=== PATIENT | female | born 2000 | race Caucasian/White ===

== ENCOUNTER 2021-04-21 09:45 | Emergency (ER) | payer BC, SELFPAY ==
[2021-04-21 10:05] VITALS: BP 156/85; PULSE 112; RESP 18; TEMP 36.4; O2SAT 99; BMI 23.9
--- NOTE | 2021-04-21 10:32 | ED_ITS ---
HPI - Abdominal Pain General Chief Complaint: Abdominal Pain Stated Complaint: abd pain, blood in stool Time Seen by Provider: 04/21/21 10:21 Source: patient Mode of arrival: ambulatory Limitations: no limitations History of Present Illness HPI narrative: Patient comes to emergency room complaining of acute on chronic abdominal pain and blood in the stool since this morning. 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 Patient denies diarrhea or constipation. Patient states she has chronic abdominal pain but she has never had blood in the stool before which happened this morning. Related Data Allergies Allergy/AdvReac Type Severity Reaction Status Date / Time cephalexin Allergy Mild Rash Unverified 04/21/21 10:35 Review of Systems Review of Systems Constitutional : No Weight loss, No Fever, No Chills, No Night Sweats, No Fatigue, No Malaise ENT/Mouth : No Hearing loss, No Ear Pain, No Nasal Congestion, No Sinus Pain, No Hoarseness, No sore throat, No Rhinorrhea, No Swallowing Difficulty Eyes: No Eye Pain, No Swelling, No Redness, No Foreign Body, No Discharge, No Vision Changes Cardiovascular : No Chest Pain, No SOB, No Dyspnea on Exertion, No Orthopnea, No Edema, No Palpitations Respiratory : No Cough, No Sputum, No Wheezing, No Smoke Exposure, No Dyspnea Gastrointestinal : No Nausea, No Vomiting, No Diarrhea, No Constipation, complaining left upper quadrant pain Genitourinary : no irregular bleeding, No Dysuria, No Urinary Frequency, No Hematuria, No Urinary Incontinence, No Urgency, No Flank Pain, No Urinary Flow Changes, No Hesitancy Musculoskeletal : No joint pain, No Myalgias, No Joint Swelling Skin : No Skin Lesions, No rash Neuro : No Weakness, No Numbness, No Paresthesias, No Loss of Consciousness, No Dizziness, No Headache Psych : No Anxiety/Panic, No Depression, No SI/HI/AH/VH, No Social Issues, Heme/Lymph: No Bruising, No Bleeding,No Lymphadenopathy Endocrine : No Polyuria, No Polydipsia, No Temperature Intolerance Physical Exam Vital Signs: Vital Signs: Last Vital Signs Temp 97.6 F 04/21/21 10:05 Pulse 79 04/21/21 11:13 Resp 18 04/21/21 11:13 BP 125/77 04/21/21 11:13 Pulse Ox 98 04/21/21 11:13 Body Mass Index 23.9 Const: Other: Appearance: Alert. Oriented X3. No acute distress. Eyes: Pupils equal, round and reactive to light. ENT: Pharynx normal. Neck: Normal inspection. Neck supple. No lymph nodes noted. No crepitus CVS: Normal heart rate and rhythm. Pulses normal. Normal S1 and S2 Respiratory: No respiratory distress. Breath sounds normal. No Wheezing. No rales Abdomen: Soft , mild abdominal discomfort on deep palpation in the left upper quadrant, No rigidity. No distention. Skin: Skin warm and dry. Normal skin color. Normal skin turgor. Extremities: No lower extremity edema. No lower extremity edema. No L acerations. No Rash Neuro: Oriented X 3. No motor deficit. No sensory deficit. Moving all extermit ies. No slurred speech. Course Course Course Narrative: I discussed the labs with the patient, they are at baseline, ESR and CRP negative, patient declining digital rectal exam, states that she has a sigmoidoscopy scheduled in 2 days from now. She will follow-up with her power house control room operator. MDM - Abdominal Pain Lab Data Result diagrams: 04/21/21 11:38 04/21/21 11:38 Labs: Lab Results 04/21/21 04/21/21 04/21/21 Range/Units 11:38 11:38 11:38 WBC 6.8 (4.8-10.8) X10*3/uL RBC 4.68 (4.20-5.50) X10*6/uL Hgb 14.8 (12.0-16.0) g/dl Hct 42.5 (37-47) % MCV 90.8 (80-98) fL MCH 31.6 (27.0-33.0) pg MCHC 34.8 (31.0-35.0) g/dl RDW 11.9 (11.0-16.0) % Plt Count 241 (160-400) X10*3/uL MPV 10.4 (9.4-12.3) fL Immature Gran % (Auto) 0.1 (0.0-0.4) % Neut % (Auto) 51.1 (45-73) % Lymph % (Auto) 38.4 (20-40) % [place] % (Auto) 6.6 (2-11) % Eos % (Auto) 3.1 (0-4) % Baso % (Auto) 0.7 (0-2) % Lymph # (Auto) 2.6 (1.2-4.9) X10*3/uL [place] # (Auto) 0.5 (0.1-1.2) X10*3/uL Eos # (Auto) 0.2 (0.0-0.4) X10*3/uL Baso # (Auto) 0.1 (0.0-0.2) X10*3/uL Abs Immat Gran (auto) 0.01 (0.00-0.03) X10*3/uL Absolute Neuts (auto) 3.5 (2.0-8.3) X10*3/uL Absolute Nucleated RBC 0.000 (0.0-0.012) X10*3/uL Nucleated RBC % (auto) 0.0 (0.0-0.2) /100WBC ESR 5 (0-20) MM/HR Sodium 141 (135-145) mmol/L Potassium 4.3 (3.3-5.1) mmol/L Chloride 108 (96-108) mmol/L Carbon Dioxide 25 (22-29) mmol/L Anion Gap 12 (12-20) BUN 5 L (9-16) mg/dL Creatinine 0.69 (0.5-1.4) mg/dL Estim Creat Clear Calc 103.7 Estimated GFR > 60 Random Glucose 85 (60-115) mg/dL Calcium 9.7 (8.4-10.2) mg/dL Total Bilirubin 0.3 (0.0-1.0) mg/dL Direct Bilirubin 0.2 (0.0-0.5) mg/dL AST 14 (5-31) U/L ALT 11 (0-31) U/L Alkaline Phosphatase 60 (39-117) U/L C-Reactive Protein (< or = 0.50) mg/dL Total Protein 7.1 (6.5-8.0) g/dL Albumin 4.5 (3.5-5.0) g/dL Lipase 19 (8-78) U/L Urine Color Urine Appearance Urine pH (5.0-8.0) Ur Specific [place] (1.005-1.025) Urine Protein (NEG-TRACE) MG/DL Urine Glucose (UA) (NEG) MG/DL Urine Ketones (NEG) MG/DL Urine Blood (NEG) Urine Nitrite (NEG) Ur Leukocyte Esterase (NEG) Urine Test (NEGATIVE) 04/21/21 04/21/21 04/21/21 Range/Units 11:38 12:42 12:42 WBC (4.8-10.8) X10*3/uL RBC (4.20-5.50) X10*6/uL Hgb (12.0-16.0) g/dl Hct (37-47) % MCV (80-98) fL MCH (27.0-33.0) pg MCHC (31.0-35.0) g/dl RDW (11.0-16.0) % Plt Count (160-400) X10*3/uL MPV (9.4-12.3) fL Immature Gran % (Auto) (0.0-0.4) % Neut % (Auto) (45-73) % Lymph % (Auto) (20-40) % [place] % (Auto) (2-11) % Eos % (Auto) (0-4) % Baso % (Auto) (0-2) % Lymph # (Auto) (1.2-4.9) X10*3/uL [place] # (Auto) (0.1-1.2) X10*3/uL Eos # (Auto) (0.0-0.4) X10*3/uL Baso # (Auto) (0.0-0.2) X10*3/uL Abs Immat Gran (auto) (0.00-0.03) X10*3/uL Absolute Neuts (auto) (2.0-8.3) X10*3/uL Absolute Nucleated RBC (0.0-0.012) X10*3/uL Nucleated RBC % (auto) (0.0-0.2) /100WBC ESR (0-20) MM/HR Sodium (135-145) mmol/L Potassium (3.3-5.1) mmol/L Chloride (96-108) mmol/L Carbon Dioxide (22-29) mmol/L Anion Gap (12-20) BUN (9-16) mg/dL Creatinine (0.5-1.4) mg/dL Estim Creat Clear Calc Estimated GFR Random Glucose (60-115) mg/dL Calcium (8.4-10.2) mg/dL Total Bilirubin (0.0-1.0) mg/dL Direct Bilirubin (0.0-0.5) mg/dL AST (5-31) U/L ALT (0-31) U/L Alkaline Phosphatase (39-117) U/L C-Reactive Protein 0.03 (< or = 0.50) mg/dL Total Protein (6.5-8.0) g/dL Albumin (3.5-5.0) g/dL Lipase (8-78) U/L Urine Color YELLOW Urine Appearance CLEAR Urine pH 7.5 (5.0-8.0) Ur Specific [place] 1.020 (1.005-1.025) Urine Protein NEG (NEG-TRACE) MG/DL Urine Glucose (UA) NEG (NEG) MG/DL Urine Ketones NEG (NEG) MG/DL Urine Blood NEG (NEG) Urine Nitrite NEG (NEG) Ur Leukocyte Esterase NEG (NEG) Urine Test NEGATIVE (NEGATIVE) Discharge Plan Discharge Clinical Impression: Chronic abdominal pain Patient Disposition: Home, Self-Care Instructions: Abdominal Pain (ED) Additional Instructions: Please follow-up with your primary care physician tomorrow. If you have any worsening or new symptoms, please return to the emergency room or call [address] [place] [address] Social History Social History Advance Directives: No
--- NOTE | 2021-04-21 11:00 | PC.NURSE ---
Pt c/o abdominal pain and blood in the stool this morning accompanied by mild abdominal cramping. She denies diarrhea/constipation. No n/v. she reports having chronic abdominal pain but has never had blood in the stool. Pt is being followed by a GI doctor.
[2021-04-21] MEDS: Lidocaine HCl Viscous 2 % 15 ML SOLUTION MUCOUS MEM (11:11)
[2021-04-21] MEDS: Magnesium Hydrox/Alum Hydrox 30 ML ORAL.SUSP PO (11:12)
[2021-04-21 11:13] VITALS: BP 125/77; PULSE 79; RESP 18; O2SAT 98
[2021-04-21 11:42] LABS: MANUAL DIFF FLAG NO
[2021-04-21 11:45] LABS: Basophils Absolute Auto 0.1 X10*3/uL (0.0-0.2); Basophils Percent Auto 0.7 % (0-2); Eosinophils Absolute Auto 0.2 X10*3/uL (0.0-0.4); Eosinophils Percent Auto 3.1 % (0-4); Hematocrit 42.5 % (37-47); Hemoglobin 14.8 g/dl (12.0-16.0); Imm Gran Abs Auto 0.01 X10*3/uL (0.00-0.03); Imm Gran Pct Auto 0.1 % (0.0-0.4); Lymphocytes Absolute Auto 2.6 X10*3/uL (1.2-4.9); Lymphocytes Percent Auto 38.4 % (20-40); Mean Corpuscular HGB Conc 34.8 g/dl (31.0-35.0); Mean Corpuscular Hemoglobin 31.6 pg (27.0-33.0); Mean Corpuscular Volume 90.8 fL (80-98); Mean Platelet Volume 10.4 fL (9.4-12.3); Monocytes Absolute Auto 0.5 X10*3/uL (0.1-1.2); Monocytes Percent Auto 6.6 % (2-11); Neutrophils Absolute Auto 3.5 X10*3/uL (2.0-8.3); Neutrophils Percent Auto 51.1 % (45-73); Platelet Count 241 X10*3/uL (160-400); Red Blood Count 4.68 X10*6/uL (4.20-5.50); Red Cell Distribution Width 11.9 % (11.0-16.0); White Blood Count 6.8 X10*3/uL (4.8-10.8)
[2021-04-21 12:02] LABS: C Reactive Protein 0.03 mg/dL (< or = 0.50)
[2021-04-21 12:06] LABS: Alanine Aminotransferase 11 U/L (0-31); Albumin Level 4.5 g/dL (3.5-5.0); Alkaline Phosphatase 60 U/L (39-117); Anion Gap 12 (12-20); Aspartate Amino Transferase 14 U/L (5-31); Bilirubin Direct 0.2 mg/dL (0.0-0.5); Bilirubin Total 0.3 mg/dL (0.0-1.0); Blood Urea Nitrogen 5 mg/dL (9-16); Calcium 9.7 mg/dL (8.4-10.2); Carbon Dioxide 25 mmol/L (22-29); Chloride 108 mmol/L (96-108); Creatinine Clr Calc Pharmacy 103.7; Estimated Glomerular Filt Rate > 60; Glucose Random 85 mg/dL (60-115); Lipase 19 U/L (8-78); Potassium 4.3 mmol/L (3.3-5.1); Sodium 141 mmol/L (135-145); Total Protein 7.1 g/dL (6.5-8.0)
[2021-04-21 12:24] LABS: Erythrocyte Sedimentation Rate 5 MM/HR (0-20)
[2021-04-21 12:49] LABS: Appearance Urine CLEAR; Color Urine YELLOW; Glucose Urine UA NEG (NEG); Leukocyte Esterase Urine NEG (NEG); Nitrite Urine NEG (NEG); PH 7.5 (5.0-8.0); Urine Blood NEG (NEG); Urine Ketones NEG (NEG); Urine Protein NEG (NEG-TRACE)
[2021-04-21 12:53] LABS: UPreg QC Valid YES; Urine Pregnancy NEGATIVE (NEGATIVE)
== END 2021-04-21 13:37 | disposition home or self-care (01) ==
PROVIDERS: Emergency Provider Emergency Medicine; PCP Internal Medicine
DX: R10.9 Unspecified abdominal pain (principal)
CPT/HCPCS: 36415; 80048; 80076; 81003; 81025; 83690; 85025; 85652; 86140; 99284

== ENCOUNTER 2021-07-11 11:46 | Emergency (ER) | payer BC, OTHER, SELFPAY ==
--- NOTE | ~2021-07-11 | US_ITS ---
EXAMINATION: US PELVIS CLINICAL INFORMATION: Lower abdominal pain. Heavy vaginal bleeding for 3 days. COMPARISON: None. TECHNIQUE: Ultrasound of the pelvis is performed using both transabdominal and transvaginal transducers along with Doppler. Transvaginal imaging is performed due to inadequate visualization transabdominally. FINDINGS: Uterus: The uterus is anteverted and measures 7.8 x 4.1 x 4.2 cm. The endometrium measures 0.3 cm. No focal abnormalities. The uterus is smooth in contour and has normal myometrial echogenicity. No visible fibroid. Adnexa: The right ovary measures 3.5 x 1.6 x 1.6 cm for a volume of 5 mL. It is normal in morphology with preserved flow on color and spectral Doppler. In the region of the left adnexa, there is a 6 x 4.5 x 6.6 cm cystic appearing lesion with anechoic content, thin palma and no associated septations or debris. However, the left ovary is no definite is identified. No free fluid. US/US pelvic ovarian doppler IMPRESSION: There is a large 6.6 cm cystic lesion in the left adnexa, possibly ovarian in origin. The left ovary was not identified in this examination, likely due to compression and distortion from this large cyst. Further evaluation with an MR of the pelvis is recommended to definitely characterize this cyst and to identify the left ovary. Based on on this examination, a left ovarian torsion cannot be excluded. This critical result was discussed with JASMINE Lozada at 07/11/2021 5:47 PM and it was ascertained that the content and urgency of the report was understood at the time of direct communication.
--- NOTE | ~2021-07-11 | US_ITS ---
EXAMINATION: US ABDOMEN LIMITED CLINICAL INFORMATION: Right upper quadrant pain, elevated liver enzymes. COMPARISON: No similar priors. TECHNIQUE: Real-time imaging of the right upper quadrant abdominal viscera. FINDINGS: PANCREAS: Only partially visualized and unremarkable. The tail was obscured by overlying bowel gas. LIVER: Normal. The liver is normal in size. The liver contour is normal. Parenchymal echogenicity is normal. No focal hepatic lesion. There is no intrahepatic biliary duct dilatation seen. GALLBLADDER: Normal. The gallbladder is physiologically distended without evidence of stones, sludge, polyps, wall thickening or pericholecystic fluid. COMMON BILE DUCT: Normal in caliber measuring 0.3 cm in diameter. RIGHT KIDNEY: Normal. No hydronephrosis. No renal calculi or focal parenchymal lesions. The kidney measures 11.9 cm in maximum dimension. FREE FLUID: None. US/US abdomen limited IMPRESSION: No acute sonographic abnormalities.
--- NOTE | ~2021-07-11 | US_ITS ---
EXAMINATION: US PELVIS CLINICAL INFORMATION: Lower abdominal pain. Heavy vaginal bleeding for 3 days. COMPARISON: None. TECHNIQUE: Ultrasound of the pelvis is performed using both transabdominal and transvaginal transducers along with Doppler. Transvaginal imaging is performed due to inadequate visualization transabdominally. FINDINGS: Uterus: The uterus is anteverted and measures 7.8 x 4.1 x 4.2 cm. The endometrium measures 0.3 cm. No focal abnormalities. The uterus is smooth in contour and has normal myometrial echogenicity. No visible fibroid. Adnexa: The right ovary measures 3.5 x 1.6 x 1.6 cm for a volume of 5 mL. It is normal in morphology with preserved flow on color and spectral Doppler. In the region of the left adnexa, there is a 6 x 4.5 x 6.6 cm cystic appearing lesion with anechoic content, thin palma and no associated septations or debris. However, the left ovary is no definite is identified. No free fluid. US/US pelvic and transvaginal IMPRESSION: There is a large 6.6 cm cystic lesion in the left adnexa, possibly ovarian in origin. The left ovary was not identified in this examination, likely due to compression and distortion from this large cyst. Further evaluation with an MR of the pelvis is recommended to definitely characterize this cyst and to identify the left ovary. Based on on this examination, a left ovarian torsion cannot be excluded. This critical result was discussed with JASMINE Lozada at 07/11/2021 5:47 PM and it was ascertained that the content and urgency of the report was understood at the time of direct communication.
[2021-07-11 11:56] VITALS: BP 137/80; PULSE 104; RESP 18; TEMP 36.8; O2SAT 100; BMI 24.7
[2021-07-11 13:29] LABS: MANUAL DIFF FLAG NO
[2021-07-11 13:30] LABS: Basophils Percent Auto 0.5 % (0-2); Eosinophils Absolute Auto 0.1 X10*3/uL (0.0-0.4); Eosinophils Percent Auto 1.2 % (0-4); Hematocrit 42.1 % (37.0-47.0); Hemoglobin 14.4 g/dl (12.0-16.0); Imm Gran Abs Auto 0.03 X10*3/uL (0.00-0.03); Imm Gran Pct Auto 0.4 % (0.0-0.4); Lymphocytes Absolute Auto 2.3 X10*3/uL (1.2-4.9); Lymphocytes Percent Auto 28.3 % (20-40); Mean Corpuscular HGB Conc 34.2 g/dl (31.0-35.0); Mean Corpuscular Hemoglobin 31.2 pg (27.0-33.0); Mean Corpuscular Volume 91.3 fL (80.0-98.0); Mean Platelet Volume 10.1 fL (9.4-12.3); Monocytes Absolute Auto 0.6 X10*3/uL (0.1-1.2); Monocytes Percent Auto 6.7 % (2-11); Neutrophils Absolute Auto 5.1 x10*3/uL (2.0-8.3); Neutrophils Percent Auto 62.9 % (45-73); Platelet Count 250 X10*3/uL (160-400); Red Blood Count 4.61 X10*6/uL (4.20-5.50); Red Cell Distribution Width 11.8 % (11.0-16.0); White Blood Count 8.2 X10*3/uL (4.8-10.8)
[2021-07-11 13:44] LABS: Anion Gap 14 (12-20); Blood Urea Nitrogen 9 mg/dL (9-16); Calcium 9.2 mg/dL (8.4-10.2); Carbon Dioxide 22 mmol/L (22-29); Chloride 108 mmol/L (96-108); Creatinine Clr Calc Pharmacy 119.9; Estimated Glomerular Filt Rate > 60; Glucose Random 78 mg/dL (60-115); Potassium 3.8 mmol/L (3.3-5.1); Sodium 140 mmol/L (135-145)
[2021-07-11 14:05] VITALS: BP 129/82; PULSE 104; RESP 16; O2SAT 100
--- NOTE | 2021-07-11 14:08 | ED_ITS ---
HPI - General Adult General Chief complaint: Abdominal Pain Stated complaint: severe cramping Time Seen by Provider: 07/11/21 14:08 Source: patient Mode of arrival: ambulatory Limitations: no limitations History of Present Illness HPI narrative: This is a 20-year-old female [id number] medical history of interstitial cystitis presents to the emergency department complaints of severe abdominal cramping, heavy vaginal bleeding, and dizziness x3 days progressively worsening. Patient tells me that she is having 10/10 severe abdominal cramping to the lower abdomen. She states that it has been progressively worsening. She also tells me that she is having severe vaginal bleeding, going through 0 1 tampon an hour for the past 3 days. She tells me that the blood is bright red, and when she goes to the bathroom it drips out. She also mentions that she has been on Depo-Provera for the past 4 years, and this is her 1st period off of control. She also tells me that she has been feeling faint/dizzy, and thi s is also been worsening. Patient has been eating and drinking per her usual. She denies chest pain, shortness of breath, fevers, chills, nausea, vomiting, diarrhea, constipation. Patient does not think she is , took a negative test at home. No concerns for STDs Onset (ago): day(s) (3) Location: abdomen and pelvis Radiation: non-radiation Severity: severe Severity scale (1-10): 10 Quality: stabbing, constant and other (cramping) Pain Consistency: constant Relieving factors: none Exacerbating factors: none Associated symptoms: other (dizziness) Treatments prior to arrival: none Related Data Previous Rx's Medication Instructions Recorded desogestrel 0.15 mg-ethinyl 1 tab PO DAILY 28 Days #28 tab 07/11/21 estradiol 0.03 mg tablet (Apri) naproxen 500 mg tablet 500 mg PO BID PRN #14 tab 07/11/21 ondansetron 4 mg disintegrating 4 mg PO ONCE PRN #10 tab 07/11/21 tablet Allergies Allergy/AdvReac Type Severity Reaction Status Date / Time cephalexin Allergy Mild Rash Verified 07/11/21 14:27 Review of Systems Review of Systems: Constitutional : No Weight loss, No Fever, No Chills, No Fatigue, No Malaise ENT/Mouth : No sore throat, No Rhinorrhea Eyes: No Eye Pain, No Swelling, No Redness Cardiovascular : No Chest Pain, No SOB, No Dyspnea on Exertion, No Orthopnea, No Edema, No Palpitations Respiratory : No Cough, No Sputum, No Wheezing Gastrointestinal : No Nausea, No Vomiting, No Diarrhea, No Constipation, + abdominal Pain, No Hematochezia, No Melena Genitourinary : No Dysuria, No Urinary Frequency, No Hematuria, + vaginal bleeding Musculoskeletal : No joint pain, No Myalgias, No Joint Swelling Skin : No Skin Lesions, No rash Neuro : No Weakness, No Numbness, + Dizziness, No Headache Psych : No Anxiety/Panic, No Depression All other systems reviewed and are negative [facility] Past Medical History Attestation statement: The following information was validated with the patient. Source: old records reviewed and nursing notes reviewed Social History Social History Advance Directives: No Advance Directives Information Provided: Yes Physical Exam Vital Signs: Vital Signs: Last Vital Signs Temp 98.3 F 07/11/21 11:56 Pulse 104 H 07/11/21 14:05 Resp 16 07/11/21 14:05 BP 129/82 07/11/21 14:05 Pulse Ox 100 07/11/21 14:05 BMI result Body Mass Index 24.7 VSS slightly tachycardic Appearance: Alert.? Oriented X3.? No acute distress.? Patient extremely anxious. Head: Normocephalic, atraumatic, no step-offs or deformities Eyes: Pupils equal, round and reactive to light.? ENT: Pharynx normal.? Neck: Normal inspection.? Neck supple.? CVS: Normal heart rate and rhythm.? Pulses normal.? Respiratory: No respiratory distress.? Breath sounds normal.? Abdomen: Soft and + tenderness to suprapubic region, RLQ,LLQ.? Pelvic: patient refused this exam. Skin: Skin warm and dry.? Normal skin color.? Normal skin turgor.? Extremities: No lower extremity edema.? No calf ttp. 5/5 strength to bilateral upper and lower extremities Back: No midline tenderness, no C-spine tenderness, full range of motion, no CVA tenderness bilaterally Neuro: Oriented X 3.? No motor deficit.? No sensory deficit. Course Reevaluation(s) Reevaluation #1: Laboratory studies show no infection, no anemia, no electrolyte abnormalities. LFTs noted to be elevated in the 2-1 ratio, however patient states she does not consume alcohol. An US of RUQ will be ordered at this time. Time: 14:18 Reevaluation #2: patient refusing all test, attempted to do a pelvic exam on the patient and she began hysterically crying. Refusing pelvic, IV, US. Time: 15:39 Reevaluation #3: I started a 20 G IV in the left AC. Patient now agrees with ultrasound. Urine negative. Time: 15:58 Additional Reevaluation(s): Received an ultrasound critical results from [facility] Ultrasound shows a large cyst in the left adnexa measuring approximately 7 cm it appears to be a simple cyst. However, they could not visualize the left ovary due to the size of the cyst, patient's pain could be likely secondary to comp ression. They recommended MRI to further evaluate this, and rule out torsion. At this time 1755 patient is still reporting severe pain, despite medication with Dilaudid Spoke to who tells me that this time we were unable to rule out torsion since the ovary could not be visualized. He will come to personally evaluate the patient at the bedside. [address] Torres to examine patient, pain likely period cramping. Unlikely torsion. NG CT swabs done and sent to the lab. Patient will be called if positive results. control pills were sent to the patient's pharmacy, to help slow down bleeding. NSAID sent to pharmacy as well. She has been advised to return to the emergency department any new or worsening symptoms. I have also advised patient to call office for follow up as she will require a follow up US. Patient safe for DC home with strict return percautions. Medical Decision Making [facility] Narrative Medical decision making narrative: 1415 20-year-old female presents to the emergency department with complaints of heavy vaginal bleeding, severe abdominal cramping and dizziness x3 days progressively worsening. To note, this is patient's 1st. Off of Depo-Provera after being on it for 4 years. Patient states she is going through 1 tampon an hour. Upon physical examination patient appears well, vital signs are stable, slightly tachycardic however she appears to be anxious. Lungs are clear. S1-S2 appreciated rapid regular rhythm. Abdomen is soft and tender to palpation to suprapubic region, left lower quadrant, right lower quadrant (left >right) . Normoactive bowel sounds. No focal neuro deficits. 5/5 strength upper and lower extremities. Skin normal color no pallor. Patient complaining of severe pain and refusing pelvic exam at this time Plan at this time is to obtain basic labs, urine , COVID, UA, EKG, pelvic ultrasound. Will give fluids Medical Records Medical records reviewed: Yes I reviewed the patient's medical records. Lab Data Lab results reviewed: Yes I reviewed the patient's lab results. Result diagrams: 07/11/21 13:20 12 13:20 Labs: Lab Results 07/11/21 07/11/21 Range/Units 13:20 13:20 WBC 8.2 (4.8-10.8) X10*3/uL RBC 4.61 (4.20-5.50) X10*6/uL Hgb 14.4 (12.0-16.0) g/dl Hct 42.1 (37.0-47.0) % MCV 91.3 (80.0-98.0) fL MCH 31.2 (27.0-33.0) pg MCHC 34.2 (31.0-35.0) g/dl RDW 11.8 (11.0-16.0) % Plt Count 250 (160-400) X10*3/uL MPV 10.1 (9.4-12.3) fL Immature Gran % (Auto) 0.4 (0.0-0.4) % Neut % (Auto) 62.9 (45-73) % Lymph % (Auto) 28.3 (20-40) % [place] % (Auto) 6.7 (2-11) % Eos % (Auto) 1.2 (0-4) % Baso % (Auto) 0.5 (0-2) % Lymph # (Auto) 2.3 (1.2-4.9) X10*3/uL [place] # (Auto) 0.6 (0.1-1.2) X10*3/uL Eos # (Auto) 0.1 (0.0-0.4) X10*3/uL Baso # (Auto) 0.0 (0.0-0.2) X10*3/uL Abs Immat Gran (auto) 0.03 (0.00-0.03) X10*3/uL Absolute Neuts (auto) 5.1 (2.0-8.3) x10*3/uL Absolute Nucleated RBC 0.000 (0.0-0.012) X10*3/uL Nucleated RBC % (auto) 0.0 (0.0-0.2) /100WBC Sodium 140 (135-145) mmol/L Potassium 3.8 (3.3-5.1) mmol/L Chloride 108 (96-108) mmol/L Carbon Dioxide 22 (22-29) mmol/L Anion Gap 14 (12-20) BUN 9 (9-16) mg/dL Creatinine 0.65 (0.5-1.4) mg/dL Estim Creat Clear Calc 119.9 Estimated GFR > 60 Random Glucose 78 (60-115) mg/dL Calcium 9.2 (8.4-10.2) mg/dL Total Bilirubin 0.7 (0.0-1.0) mg/dL Direct Bilirubin 0.2 (0.0-0.5) mg/dL AST 53 H (5-31) U/L ALT 128 H (0-31) U/L Alkaline Phosphatase 69 (39-117) U/L Total Protein 7.1 (6.5-8.0) g/dL Albumin 4.2 (3.5-5.0) g/dL Lipase 16 (8-78) U/L Beta HCG, Quant < 2 mIU/mL Imaging Data US of RUQ: Attestation: I personally reviewed and interpreted this imaging study as follows: Radiologist's impression: US/US abdomen limited IMPRESSION: No acute sonographic abnormalities. Pelvic US : Attestation: I personally reviewed and interpreted this imaging study as follows: Radiologist's impression: US/US pelvic ovarian doppler IMPRESSION: ? There is a large 6.6 cm cystic lesion in the left adnexa, possibly ovarian in origin. The left ovary was not identified in this examination, likely due to compression and distortion from this large cyst. Further evaluation with an MR of the pelvis is recommended to definitely characterize this cyst and to identify the left ovary. Based on on this examination, a left ovarian torsion cannot be excluded. ? This critical result was discussed with JASMINE Lozada at 07/11/2021 5:47 PM and it was ascertained that the content and urgency of the report was understood at the time of direct communication. Critical Care Time Critical Care Time Critical Care Time: Yes Total Critical Care Time: 90 Attestation: I attest to this time spent taking care of the patient reviewing images, laboratory studies, speaking to the specialists, repeating exams multiple times. Educating the patient. Discharge Plan Discharge Clinical Impression: Abdominal pain, Dizziness, Menorrhagia, Ovarian cyst Patient Disposition: Home, Self-Care Instructions: Ovarian Cyst (ED), Abdominal Pain (ED), Dizziness (ED), Heat Pack Application (ED) Additional Instructions: Take your medications as prescribed. Doont miss any doses for birthcontrol this can make bleeding worse. Follow-up with your primary care provider this week. Return to the emergency department with new or worsening symptoms. Please return if you experience severe pain, nausea, vomiting, abdominal pain, worsening vaginal bleeding. or if you are going through more than 1 pad per hour. No intercourse until further evaluation, this cyst can rupture. Some cultures were obtained and are pending. You will only receive a call if they are positive. In case of emergency call 911 Prescriptions: New ondansetron 4 mg tablet,disintegrating 4 mg PO ONCE PRN (Reason: nausea and vomiting) Qty: 10 RF: 0 naproxen 500 mg tablet 500 mg PO BID PRN (Reason: pain) Qty: 14 RF: 0 desogestrel-ethinyl estradiol [Apri] 0.15-0.03 mg tablet 1 tab PO DAILY 28 Days Qty: 28 RF: 3 Referrals: Francia Page NP [Primary Care Provider] - 2 days Nash Torres MD [Physician] - 1 week Stand Alone Forms: Work/School Release
--- NOTE | 2021-07-11 14:08 | ECG_ITS ---
Test Reason : ABD PAIN Blood Pressure : / mmHG Vent. Rate : 081 BPM Atrial Rate : 081 BPM P-R Int : 136 ms QRS Dur : 084 ms QT Int : 366 ms P-R-T Axes : 043 062 028 degrees QTc Int : 425 ms Normal sinus rhythm with sinus arrhythmia Normal ECG No previous ECGs available Referred By: Radha Moncada Electronically Signed By:MARANDA ADRIAN
[2021-07-11] MEDS: LORazepam 1 MG TABLET PO (14:57)
[2021-07-11 16:06] LABS: Alanine Aminotransferase 128 U/L (0-31); Albumin Level 4.2 g/dL (3.5-5.0); Alkaline Phosphatase 69 U/L (39-117); Aspartate Amino Transferase 53 U/L (5-31); Bilirubin Direct 0.2 mg/dL (0.0-0.5); Bilirubin Total 0.7 mg/dL (0.0-1.0); Lipase 16 U/L (8-78); Total Protein 7.1 g/dL (6.5-8.0)
[2021-07-11 16:11] LABS: HCG Quantitative < 2 mIU/mL
[2021-07-11] MEDS: HYDROmorphone HCl 0.5 MG/0.5 ML SYRINGE IVPUSH (16:16)
--- NOTE | 2021-07-11 19:59 | P.CONOB_ITS ---
FLEET COORDINATOR - CN: HPI Data of Consult Consult date: 07/11/21 Primary Care Provider: Francia Page NP Consult Narrative Narrative: I Was consulted on Nella Bragg who is a 20 year old female who presented emergency room complaining of pelvic cramping associated with vaginal bleeding that started 3 days ago. 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 Review of Systems ROS Unobtainable: All systems reviewed & are unremarkable except as noted in HPI and below Cardiovascular: Denies Palpatations, Loss of consciousness or Chest pain Respiratory: Denies Cough, Wheezing or Shortness of breath Musculoskeletal: Denies Low back pain Gastrointestinal: Denies Heartburn, Constipation, Diarrhea, Nausea or Vomiting Genitourinary: Denies Pain with urination, Burning with urination or Urinary frequency Neurological: Denies Migranes Psychological: Denies Depression [facility] Social History Social History Advance Directives: No Advance Directives Information Provided: Yes Meds Allergies Allergy/AdvReac Type Severity Reaction Status Date / Time cephalexin Allergy Mild Rash Verified 07/11/21 14:27 FLEET COORDINATOR Physical Exam Vitals Vital signs: Temp Pulse Resp BP Pulse Ox 98.3 F 104 H 16 129/82 100 07/11/21 11:56 07/11/21 14:05 07/11/21 14:05 07/11/21 14:05 07/11/21 14:05 BMI result Body Mass Index 24.7 Constitutional General Appearance: Healthy appearing, Well-nourished and Well-developed Psychiatric Mood and Affect: active and alert, normal mood and normal affect Skin Appearance: No rashes and No lesions Lungs Respiratory Effort: No intercostal retractions Auscultation: Clear to auscultation Cardiovascular Auscultation: RRR Abdomen Auscultation/Inspection/Palpation: Normal bowel sounds, Soft, Non-distended and No tenderness Female Genitalia (Pelvic) Bladder/Urethra: Normal meatus Vulva: No lesions Cervix: Grossly normal Uterus: Normal size and Nontender Adnexa/Parametria: Adnexal Tenderness: None, Adnexal Mass: Left, Parametrial Tenderness: None and Parametrial Mass: None Additional Comments: No evidence of active vaginal bleeding, and minimal blood per vagina FLEET COORDINATOR - Results Labs CBC & Chem 7: 07/11/21 13:20 07/11/21 13:20 Labs: Short CBC 07/11/21 Range/Units 13:20 WBC 8.2 (4.8-10.8) X10*3/uL Hgb 14.4 (12.0-16.0) g/dl Hct 42.1 (37.0-47.0) % Plt Count 250 (160-400) X10*3/uL BMP 07/11/21 13:20 Sodium 140 Potassium 3.8 Chloride 108 Carbon Dioxide 22 BUN 9 Creatinine 0.65 Calcium 9.2 Liver Function 07/11/21 Range/Units 13:20 Total Bilirubin 0.7 (0.0-1.0) mg/dL Direct Bilirubin 0.2 (0.0-0.5) mg/dL AST 53 H (5-31) U/L ALT 128 H (0-31) U/L Alkaline Phosphatase 69 (39-117) U/L Albumin 4.2 (3.5-5.0) g/dL Imaging US - abdomen: Radiologist's impression: ITS Impressions Abdomen Ultrasound 07/11/21 16:54 IMPRESSION: No acute sonographic abnormalities. Doppler Study Ultrasound 07/11/21 17:15 IMPRESSION: There is a large 6.6 cm cystic lesion in the left adnexa, possibly ovarian in origin. The left ovary was not identified in this examination, likely due to compression and distortion from this large cyst. Further evaluation with an MR of the pelvis is recommended to definitely characterize this cyst and to identify the left ovary. Based on on this examination, a left ovarian torsion cannot be excluded. This critical result was discussed with JASMINE Lozada at 07/11/2021 5:47 PM and it was ascertained that the content and urgency of the report was understood at the time of direct communication. Pelvic/Transvag US 07/11/21 17:15 IMPRESSION: There is a large 6.6 cm cystic lesion in the left adnexa, possibly ovarian in origin. The left ovary was not identified in this examination, likely due to compression and distortion from this large cyst. Further evaluation with an MR of the pelvis is recommended to definitely characterize this cyst and to identify the left ovary. Based on on this examination, a left ovarian torsion cannot be excluded. This critical result was discussed with JASMINE Lozada at 07/11/2021 5:47 PM and it was ascertained that the content and urgency of the report was understood at the time of direct communication. Assessment and Plan (1) Ovarian cyst: Qualifiers: Laterality: left Qualified Code(s): N83.202 - Unspecified ovarian cyst, left side Status: Acute Discussed with the patient the finding on ultrasound , 6.7 cm simple ovarian cyst, given the finding on pelvic exam and abdominal exam, benign nontender, likely for ovarian torsion. Signs and symptoms of ovarian rupture and or torsion were given to the patient, she is to call in case of abdominal pain, nausea and vomiting. Instructions given to the patient to refrain from intercourse strenuous activities and to schedule a Follow-up appointment in the office , willrepeat ultrasound in 6-8 weeks and treat accordingly. (2) Menorrhagia: Qualifiers: Menorrhagia type: with irregular cycle Qualified Code(s): N92.1 - Excessive and frequent menstruation with irregular cycle Status: Acute Since the amount of vaginal bleeding is mild and H&H are within normal, options of treatment were discussed with the patient including progesterone , control pills, vaginal ring, patch, Depo-Provera. All the pros and cons risks and benefits of each were discussed with the patient patient is interested in contraception and control pills , so a more detailed caution about the mechanism of action, side effects and possible risks were discussed with the patient, risks including but not limited to: hypertension, DVT, mi, breast cancer and others. All Questions answered, the patient verbalized understanding. control pills will be sent to the patient's pharmacy to be started today. Instructions given the patient to use a backup method for control for the 1st 2 weeks to call in case of heavy vaginal bleeding persist or get worse. Follow-up in the office in 1-2 weeks. (3) Elevated liver function tests: Status: Acute Recommended the patient to follow-up with her PCP liver function test elevation.
[2021-07-12 04:05] LABS: CT PCR NOT DETECTED (Not Detect.); NG PCR NOT DETECTED (Not Detect.)
== END 2021-07-11 19:55 | disposition home or self-care (01) ==
PROVIDERS: Physician Assistant; Emergency Provider Emergency Medicine; PCP Nurse Practitioner Family
DX: R10.9 Unspecified abdominal pain (principal); N83.202 Unspecified ovarian cyst, left side; R79.89 Other specified abnormal findings of blood chemistry; N92.1 Excessive and frequent menstruation with irregular cycle; R42 Dizziness and giddiness
CPT/HCPCS: 36415; 76705; 76830; 76856; 80048; 80076; 83690; 84702; 85025; 87491; 87591; 93005; 93975; 96361; 96374; 96376; 99284; 99291; 99292; J1170

== ENCOUNTER → 2021-07-18 10:11 | Outpatient (BNVA) | payer BC, SELFPAY | PROVIDERS: Visit Provider Obstetrics & Gynecology ==

== ENCOUNTER → 2021-07-24 13:40 | Outpatient (BNVA) | payer BC, SELFPAY | PROVIDERS: Visit Provider Obstetrics & Gynecology ==

== ENCOUNTER → 2021-09-02 16:05 | Outpatient (BNVA) | payer BC, SELFPAY | PROVIDERS: Visit Provider Obstetrics & Gynecology ==

== ENCOUNTER 2021-09-11 14:36 | Outpatient (REF) | payer BC, OTHER, SELFPAY ==
--- NOTE | ~2021-09-11 | US_ITS ---
EXAMINATION: US PELVIS WITH DOPPLER CLINICAL INFORMATION: Ovarian cyst COMPARISON: None TECHNIQUE: Ultrasound of the pelvis is performed using both transabdominal and transvaginal transducers along with Doppler. Transvaginal imaging is performed due to inadequate visualization transabdominally. Nieves-scale and color and Doppler evaluation of the ovarian vessels including waveform spectral analysis was performed. FINDINGS: The uterus is anteverted and measures 5.9 x 2.3 x 3.9 cm in dimension. No focal uterine lesion is seen. Endometrial thickness is normal measuring 0.4 cm. The right ovary is normal appearing and measures 3.4 x 1.6 x 1.8 cm. The left ovary measures 3.2 x 2.3 x 2.1 cm. The previously identified 6 x 4.5 x 6.6 cm simple left ovarian cyst on July 2021 exam is no longer seen. There is a new 1.7 x 1.5 x 1.8 cm minimally complex left ovarian cyst with single thin septation. There is no fluid in the pelvis. Arterial and venous flow is documented to both ovaries. There is no evidence of torsion. US/US pelvic ovarian doppler IMPRESSION: Resolved 6 cm left ovarian cyst from July 2021 exam.
--- NOTE | ~2021-09-11 | US_ITS ---
EXAMINATION: US PELVIS WITH DOPPLER CLINICAL INFORMATION: Ovarian cyst COMPARISON: None TECHNIQUE: Ultrasound of the pelvis is performed using both transabdominal and transvaginal transducers along with Doppler. Transvaginal imaging is performed due to inadequate visualization transabdominally. Nieves-scale and color and Doppler evaluation of the ovarian vessels including waveform spectral analysis was performed. FINDINGS: The uterus is anteverted and measures 5.9 x 2.3 x 3.9 cm in dimension. No focal uterine lesion is seen. Endometrial thickness is normal measuring 0.4 cm. The right ovary is normal appearing and measures 3.4 x 1.6 x 1.8 cm. The left ovary measures 3.2 x 2.3 x 2.1 cm. The previously identified 6 x 4.5 x 6.6 cm simple left ovarian cyst on July 2021 exam is no longer seen. There is a new 1.7 x 1.5 x 1.8 cm minimally complex left ovarian cyst with single thin septation. There is no fluid in the pelvis. Arterial and venous flow is documented to both ovaries. There is no evidence of torsion. US/US pelvic complete IMPRESSION: Resolved 6 cm left ovarian cyst from July 2021 exam.
== END 2021-09-11 14:37 | disposition home or self-care (01) ==
LOC: HO.US 14:36
PROVIDERS: Visit Provider Obstetrics & Gynecology
DX: Z01.419 Encounter for gynecological examination (general) (routine) without abnormal findings (principal); N83.209 Unspecified ovarian cyst, unspecified side; R10.2 Pelvic and perineal pain
CPT/HCPCS: 76856; 81003; 81025; 93975

== ENCOUNTER 2021-09-11 15:44 | Outpatient (REF) | payer BC, OTHER, SELFPAY ==
[2021-09-12 04:56] LABS: CT PCR NOT DETECTED (Not Detect.); NG PCR NOT DETECTED (Not Detect.)
[2021-09-13 02:12] LABS: CA-125 5 U/mL (<35)
== END 2021-09-11 15:45 | disposition home or self-care (01) ==
LOC: HO.LAB 15:44
PROVIDERS: Visit Provider Obstetrics & Gynecology
DX: Z01.419 Encounter for gynecological examination (general) (routine) without abnormal findings (principal); R10.2 Pelvic and perineal pain; N83.299 Other ovarian cyst, unspecified side
CPT/HCPCS: 36415; 86304; 87491; 87591

== ENCOUNTER 2021-12-09 10:50 | Outpatient (REF) | payer BC, OTHER, SELFPAY ==
--- NOTE | ~2021-12-09 | US_ITS ---
EXAMINATION: US PELVIS CLINICAL INFORMATION: Ovarian cyst. COMPARISON: Ultrasound pelvis 09/11/2021. TECHNIQUE: Ultrasound of the pelvis is performed using both transabdominal and transvaginal transducers along with Doppler. Patient preferred no transvaginal ultrasound. FINDINGS: Uterus: The uterus is anteverted, anteflexed and measures 5.8 cm in length, 2.8 cm in AP, and 3.8 cm in transverse dimension. The double wall endometrial thickness is 0.5 cm. The uterus is smooth in contour and has normal myometrial echogenicity. No visible fibroid. Adnexa: Both ovaries are visualized. There is normal color-flow to the adnexa. There is no ovarian torsion. There is no pelvic ascites or fluid collection. Right ovary measures 3.2 x 1.6 x 2.9 cm and volume 7.8 mL. It appears unremarkable. Previously, the right ovary measured 3.4 x 1.6 x 1.8 cm. Left ovary measures 2.7 x 2.2 x 2.2 cm and volume 6.8 mL. No focal lesion seen. Previously, the left ovary measured 3.2 x 2.3 x 2.1 cm. There is no free fluid in the cul-de-sac. US/US pelvic complete IMPRESSION: Unremarkable uterus and ovaries. Previously visualized left ovarian cyst is not visualized at this time.
== END 2021-12-09 10:51 | disposition home or self-care (01) ==
LOC: HO.US 10:50
PROVIDERS: Visit Provider Obstetrics & Gynecology
DX: N83.299 Other ovarian cyst, unspecified side (principal)
CPT/HCPCS: 76856

== ENCOUNTER → 2021-12-23 12:23 | Outpatient (BNVA) | payer BC, OTHER, SELFPAY | PROVIDERS: Visit Provider Obstetrics & Gynecology | DX: N83.299 Other ovarian cyst, unspecified side (principal) ==

== ENCOUNTER 2024-07-09 06:05 | Emergency (ER) | payer BC, SELFPAY ==
--- NOTE | ~2024-07-09 | XR_ITS ---
EXAMINATION: XR SHOULDER, LEFT CLINICAL INFORMATION: trauma COMPARISON: None available. TECHNIQUE: AP external rotation, Grashey, scapular Y, and axillary views of the left shoulder. FINDINGS: The bones and soft tissues are normal. No fracture. Glenohumeral and acromioclavicular alignment is anatomic with normal joint space. No abnormal soft tissue calcifications. XR/XR shoulder LT min 2V IMPRESSION: Normal left shoulder. Electronically signed by: Devika Rob MD 07/09/2024 07:51 AM EST [facility]
[2024-07-09 06:13] VITALS: BP 152/97; PULSE 131; RESP 18; TEMP 37.1; O2SAT 97; BMI 32.1
[2024-07-09] MEDS: Acetaminophen 325 MG TABLET 975 MG PO (06:22)
[2024-07-09] MEDS: Ibuprofen 400 MG TABLET PO (06:23)
--- NOTE | 2024-07-09 06:31 | ED_ITS ---
HPI - Extremity Problem General Chief complaint: Extremity Injury, Upper Stated complaint: shoulder inj Time Seen by Provider: 07/09/24 06:27 Source: patient Mode of arrival: ambulatory Limitations: no limitations History of Present Illness ED Provider: Deshawn HENDERSON Narrative: Patient is a 23-year-old female presenting to the ED with complaint of left anterior shoulder pain after a slip and fall last night. Reports pain is to anterior shoulder. Decreased ROM due to pain. Denies weakness/numbness/tingling. Denies head strike or loss of consciousness. She is not anticoagulated. Complaint: joint pain Onset (ago): hour(s) Location: left (shoulder) Quality: aching Relieving factors: rest Exacerbating factors: range of motion Associated symptoms: denies other symptoms Related Data Home Medications ?Medication ?Instructions ?Recorded ?Confirmed sertraline 50 mg tablet 50 mg PO DAILY 07/18/21 Previous Rx's ?Medication ?Instructions ?Recorded ondansetron 4 mg disintegrating 4 mg PO ONCE PRN nausea and 07/11/21 tablet vomiting #10 tabs lidocaine 5 % topical patch 1 patch topical DAILY #15 ea 07/09/24 Allergies Allergy/AdvReac Type Severity Reaction Status Date / Time cephalexin Allergy Mild Rash Verified 07/09/24 06:14 Review of Systems Review of Systems: As per HPI. Yes all other systems are reviewed and are negative Constitutional: Constitutional: Reports as per HPI REPLACED BY [facility] Past Medical History Surgical History History of colonoscopy Social History Social History Patient Tobacco Use Status: Never used Tobacco Advance Directives: No Advance Directives Information Provided: Yes Do you have a plan to hurt others: No Plan Physical Exam Vital Signs: Vital Signs: Last Vital Signs Temp 98.8 F 07/09/24 06:13 Pulse 131 H 07/09/24 06:13 Resp 18 07/09/24 06:13 BP 152/97 H 07/09/24 06:13 Pulse Ox 97 07/09/24 06:13 O2 Del Method Room Air 07/09/24 06:13 BMI result Body Mass Index 32.1 Vital signs have been reviewed and appear to be correct. Blood pressure elevated. Heart rate tachycardic. Respiratory rate normal. Temperature normal. Oxygen saturation normal. Const: General: cooperative, healthy appearing and no acute distress Orientation/consciousness: oriented to person, oriented to place, oriented to time and patient oriented x3 Limitations: no limitations HEENT: Head: Yes normocephalic and Yes atraumatic Ears: external ears normal General nose exam: Normal external nose present Face and sinus: Yes face symmetric Mouth: oropharynx normal and moist mucous membranes Throat: Yes uvula midline Eyes: Pupils: Equal, round and reactive pupils present Neck: Neck: Yes normal visual inspection and Yes supple Resp: Effort & Inspection: normal respiratory effort and able to speak in complete sentences Auscultation: clear to auscultation bilaterally Cardio: Rate: regular rate Rhythm: regular rhythm Heart sounds: S1 normal heart sound present and S2 normal heart sound present GI: Palpation (GI): Soft to palpation and nontender Auscultation: normoactive bowel sounds : General: Yes no CVA tenderness Back/Spine/Pelvis: Back: no CVA tenderness Skin: General skin exam: elasticity normal and turgor normal Neuro: General: oriented to person, oriented to place, oriented to time, patient oriented x3, moves all extremities, no focal motor deficits and CN's II- XI intact bilaterally Cranial nerves: Yes Equal, round and reactive pupils present Cognition (Neuro): normal cognition Extrem: General: Yes full ROM, Yes no pedal edema and Yes no calf tenderness Right upper extremity: shoulder/upper arm Details: normal to inspection, tenderness Location: of the A-C joint, axillary nerve sensory function normal and abnormal ROM Details: pain with active ROM Details: in ABduction, in extension, in flexion, in internal rotation and external rotation- and with range as follows (limited due to pain); no swelling, no ecchymosis and no deformity Psych: Mental Status: mental status grossly normal Affect: normal affect Thought process: Normal thought process present Medications Administered Discontinued Medications Generic Name Dose Route Start Last Admin Trade Name Girmaq PRN Reason Stop Dose Admin Acetaminophen 975 mg 07/09/24 06:19 07/09/24 06:22 Acetaminophen 325 Mg Tablet PO 07/09/24 06:20 975 mg ONCE ONE Administration Ibuprofen 400 mg 07/09/24 06:19 07/09/24 06:23 Ibuprofen 400 Mg Tablet PO 07/09/24 06:20 400 mg ONCE ONE Administration Medical Decision Making Medical Decision Making MDM Narrative: Patient is a 23-year-old female presenting to the ED with complaint of left anterior shoulder pain after a slip and fall last night. On exam patient is awake, A+Ox3, tachycardic, elevated BP, afebrile, normal neurological exam without focal deficits, physical exam findings as above. Given reported symptoms and physical exam findings, initial differential includes left shoulder strain, sprain, fracture. X-ray notable for normal left shoulder. My interpretation is in agreement with the radiologist's interpretation. Results discussed with patient and all questions answered. Will refer to ortho for ongoing symptoms. Advised Tylenol and ibuprofen, will send prescription for lidocaine patches. Return precautions discussed. Patient verbalized understanding of and agreement with plan. Differential Diagnosis Differential Diagnoses: The differential diagnosis associated with the presentation includes As per [facility] Independent Interpretation I performed an independent interpretation of an: Plain X-Ray Interpretation: No evidence of fracture or dislocation to left shoulder. Radiology Impression Discussion of test interpretation with radiology: I have reviewed the radiologist's reading. Radiologist Impression: XR/XR shoulder LT min 2V IMPRESSION: Normal left shoulder. External Record Review External record reviewed: Inpatient record, Office record and Outpatient record Prescription Management I considered prescription management with: Pain Medication Discharge Plan Discharge Clinical Impression: Left shoulder strain Patient Disposition: Home, Self-Care Instructions: Muscle Strain (DC), Rotator Cuff Injury (ED), Rotator Cuff Injury Exercises (DC) Additional Instructions: You have been evaluated in the emergency department today for shoulder pain. Your evaluation did not find evidence of medical conditions requiring emergent intervention at this time. Your x-ray was normal. We recommend gentle stretching exercises which you should perform 3-4 times daily. We recommend you take 600mg ibuprofen every 6 hours or 650mg Tylenol every 6 hours as needed for pain. If needed you can alternate these medications as they take 1 medication every 3 hours. For instance at noon take ibuprofen, then at 3:00 p.m. take Tylenol, then at 6:00 p.m. take ibuprofen. You are being prescribed topical lidocaine patches which you can wear for up to 12 hours in a 24 hour period. Do not apply head directly over the patches. Follow up with orthopedics for ongoing symptoms. Please schedule an appointment for follow-up with your primary care provider this week. Return to the emergency department if you experience worsening pain, numbness, tingling, change of color in your arm, or any other concerning symptoms. Prescriptions: New lidocaine 5 % adhesive patch,medicated 1 patch topical DAILY Qty: 15 0RF Rx Instructions: leave on most painful area for up to 12 hrs No Action ondansetron 4 mg tablet,disintegrating 4 mg PO ONCE PRN (Reason: nausea and vomiting) Qty: 10 0RF sertraline 50 mg tablet 50 mg PO DAILY Referrals: [facility] [Provider Group] Print Language: Montenegrin
[2024-07-09 08:24] VITALS: BP 162/98; PULSE 99; RESP 16; O2SAT 99
[2024-07-09 08:25] VITALS: BP 162/98; PULSE 99; RESP 16; TEMP 36.9; O2SAT 99
== END 2024-07-09 08:26 | disposition home or self-care (01) ==
PROVIDERS: Emergency Provider Emergency Medicine
DX: S46.912A Strain of unspecified muscle, fascia and tendon at shoulder and upper arm level, left arm, initial encounter (principal); W01.0XXA Fall on same level from slipping, tripping and stumbling without subsequent striking against object, initial encounter; Y93.9 Activity, unspecified; Y92.9 Unspecified place or not applicable; Y99.9 Unspecified external cause status
CPT/HCPCS: 73030; 99283; 99284

== ENCOUNTER 2024-08-02 09:13 | Outpatient (AMB) | payer BC, SELFPAY ==
--- NOTE | 2024-08-02 09:29 | MHC.OFFVIS ---
Intake Visit Reasons: HOT TAR ROOFER- ED f/u Left shoulder strain Intake Note: Nella is a 23 year old right hand dominant female who presents today as a new patient for an emergency department follow up for her left shoulder strain s/p slip and fall DOI: 07/08/24. She feels that her ROM is a little better, however she is unable to lift her arm or lay on her left side. Patient has tried lidocaine patches with mild relief. Allergies cephalexin Allergy (Mild, Verified 07/09/24 06:14) Rash HPI HPI HOT TAR ROOFER- ED f/u Left shoulder strain: Details: 23-year-old lavbi-vrpp-vnowdapc female who presents in the office today, as a new patient, for an evaluation of left shoulder strain. The patient presented to the ED on 07/09/24 status post a slip and fall that occurred on 07/08/24 night. She reported experiencing anterior shoulder pain. X-rays of the left shoulder were obtained. She was prescribed lidocaine 5% adhesive patch. She was recommended taking ibuprofen 600 mg Q6H or Tylenol 650 mg Q6H PRN for pain. She was advised to perform gentle stretching exercises 3-4 times daily. While in the office today, the patient reports ongoing left shoulder pain. She mentions mild improvement in her range of motion; however, she is unable to lift her left arm or lay on her left side. She has tried lidocaine patches with mild relief. [facility] Surgical History History of colonoscopy Social History (Updated 08/02/24 @ 09:32 by Jacquie Fenton) Patient Tobacco Use Status: Never used Tobacco Current occupational status: employed Current occupation: database administration manager/ right hand dominant Female Reproductive History Menstrual Age of Menarche: 12 Review of Systems Const All systems reviewed & are unremarkable except as noted in HPI and below Physical Exam Const General: cooperative, healthy appearing and no acute distress Orientation/consciousness: patient oriented x3 Resp Effort & Inspection: normal respiratory effort and able to speak in complete sentences Cardio Rate: regular rate Peripheral pulses: Peripheral pulses 2+ throughout GI Palpation (GI): Soft to palpation Skin General skin exam: no rashes or lesions noted Lesions: no lesions Rashes: no rashes Neuro General: patient oriented x3 Extrem Other: Left shoulder: Full range of motion in all the planes with pain. Pain with crossbody reach. Able to reach T12. 4/5 strength with an empty can test. NVI. Assessment & Plan Assessment & Plan (1) Shoulder subluxation, left: Code(s): S43.002A - Unspecified subluxation of left shoulder joint, initial encounter Category: Medical (2) Contusion of left shoulder: Code(s): S40.012A - Contusion of left shoulder, initial encounter Category: Medical Plan Ms. Bragg is a 23-year-old [id number]-jmcdadep female who presents in the office today, as a new patient, for an evaluation of left shoulder strain. The patient presented to the ED on 07/09/24 status post a slip and fall that occurred on 07/08/24 night. She reported experiencing anterior shoulder pain. X-rays of the left shoulder were obtained. She was prescribed lidocaine 5% adhesive patch. She was recommended taking ibuprofen 600 mg Q6H or Tylenol 650 mg Q6H PRN for pain. She was advised to perform gentle stretching exercises 3-4 times daily. While in the office today, the patient reports ongoing left shoulder pain. She mentions mild improvement in her range of motion; however, she is unable to lift her left arm or lay on her left side. She has tried lidocaine patches with mild relief. The patient was referred to physical therapy today. Should she continue to have pain after physical therapy; then the next step would be an MRI of the left shoulder. Follow-up will be in 6 weeks, or sooner if needed. X-rays of the left shoulder, obtained on 07/09/24, revealed: The bones and soft tissues are normal. No fracture. Glenohumeral and acromioclavicular alignment is anatomic with normal joint space. No abnormal soft tissue calcifications. Orders: Orders PT Evaluation and Treatment Today S40.012A - Contusion of left shoulder, initial encounter, S43.002A - Unspecified subluxation of left shoulder joint, initial encounter Patient Instructions: Scribed by Ban Senior, ophthalmic medical assistant, for iPppa Fernández PA-C on 08/02/24 at 9:40 am EST. Coding Level of Care Code New Pt Level 4 (46122) Diagnoses Shoulder subluxation, left S43.002A Contusion of left shoulder S40.012A
== END 2024-08-02 09:53 | disposition home or self-care (01) ==
PROVIDERS: Visit Provider Physician Assistant
DX: S43.002A Unspecified subluxation of left shoulder joint, initial encounter (principal); S40.012A Contusion of left shoulder, initial encounter
CPT/HCPCS: 99203

== ENCOUNTER → 2024-08-02 09:13 | Outpatient (BNVA) | payer BC, SELFPAY | PROVIDERS: Visit Provider Physician Assistant ==

== ENCOUNTER 2024-08-16 07:45 | Outpatient (RCR) | payer OTHER, SELFPAY ==
--- NOTE | 2024-08-16 08:54 | MHC.PT.EP ---
[facility] [place] Office [place] Office [place] Office [address] [phone] F: [phone] F: [phone] F: [phone] F: [phone] Physical Therapy Plan of Care Date of Evaluation: 08/16/24 Date of Surgery: NA Diagnosis: Contusion of L shoulder Unspecified subluxation of L shoulder joint Assessment: Nella is a 23 year old female who is referred to PT for Contusion of L shoulder, Unspecified subluxation of L shoulder joint . She injured her shoulder secondary to a fall about 5.5 weeks back. She fell on her L shoulder. She went to the ED and fracture as ruled out. On PT examination she presented with TTP over L UT and L AC joint, 5-7/10 pain with L SL, weight bearing on L side and reaching behind the back, decreased L shoulder ROM, decreased L shoulder and scap strength and altered posture. She lives with her family and is independent with all ADLS but has pain with them and is unable to lift any weights with L UE. She works in medical billing. She would benefit from skilled PT to address the aforementioned impairments and improve tolerance to functional activities. Frequency and Duration: The patient will be seen 2/week for 5 weeks Short Term Goals: 1. Pt will have 50% decrease in pain which will enable her to sleep on her L side in 2 weeks. 2. Pt will be able to move her trunk through all planes of motion without pain which will enable her to dress her upper body without limitations in 3 weeks Correction Goals: 1. Pt will demonstrate an increase in muscle strength by 1 grade which will enable her to weight bear and carry weights with L UE without pain in 5 weeks. 2. Pt will be independent with all HEP and return to PLOF in 5 weeks. Treatment Plan: Modalities to reduce pain, spasms and effusion. Manual therapy to restore motion and function. Therapeutic exercise to improve strength and flexibility. Neuromuscular re-education for posture and balance. Therapeutic activities to return to functional activities of daily living. Electronically signed by: Kathy Elizabeth PT DPT Please sign and return to therapist. Thank you for your referral.
--- NOTE | 2024-08-23 14:07 | MHC.PT.DC ---
[facility] [place] Office [place] Office [place] Office [address] Matt Gomez 140 [facility] [phone] F: [phone] F: [phone] F: [phone] F: [phone] Physical Therapy Discharge Report Diagnosis: Contusion of L shoulder Unspecified subluxation of L shoulder joint Date of Surgery: NA Date of Evaluation: 08/16/24 Date of Discharge: 08/23/24 Treatments to Date: 1 Cancellations to Date: 0 No Shows to Date: 0 Discharge Status: Patient Elected to Stop Discharge Summary: Nella called and d/c herself after her evaluation stating she does not want to attend PT at this point of time. She is therefore being d/c from PT. Electronically signed by: Kathy Elizabeth PT DPT Please sign and return to therapist. Thank you for your referral.
== END 2024-08-23 14:08 | disposition home or self-care (01) ==
LOC: HO.PT 07:45
PROVIDERS: PCP Nurse Practitioner Family; Visit Provider Physician Assistant
DX: S40.012D Contusion of left shoulder, subsequent encounter (principal); S43.002D Unspecified subluxation of left shoulder joint, subsequent encounter
CPT/HCPCS: 97112; 97161

== ENCOUNTER 2025-04-22 23:33 | Emergency (ER) | payer OTHER, SELFPAY ==
[2025-04-22 23:35] VITALS: BP 126/82; BP 146/87; PULSE 125; PULSE 56; RESP 16; TEMP 37.7; O2SAT 93; O2SAT 98; BMI 23.4
--- NOTE | 2025-04-22 23:46 | PC.NURSE ---
Pt adamantly denies SI, stating she has never self harmed before and has no intention of self harming at this time. Pt denies HI as well. Pt reports being complaint with medications. Pt reports that her dad is a drunk and was drinking a lot today as a result of going golfing. Pt reports that when her dad gets drunk she tends to argue with him and currently he is selling the house. She expresses concern that her father will let people into her room during the open house and she has a cat and is worried about people being in contact with her cat. EMS reports that PD told pt she could either come here willingly or they would section 12 her. Pt came willingly. Pt again, denies SI/HI/AH/VH
--- NOTE | 2025-04-23 | ED_ITS ---
HPI - Psych General Chief Complaint: Psychiatric Symptoms Stated Complaint: SI statements Time Seen by Provider: 04/22/25 23:36 History of Present Illness HPI Narrative: Patient is a 24-year-old female presents today after getting into an argument with her dad about an open house. Patient denies any suicide or homicidal ideation denies having any guns in the house. Patient is sent in by PD because father may have made a claim about her using a shotgun. Patient denies any suicidal or homicidal thoughts. Denies any recreational drug use. Patient come home. Does not own a gun. Related Data Home Medications ?Medication ?Instructions ?Recorded ?Confirmed amitriptyline 50 mg tablet 50 mg PO BEDTIME 04/23/25 0 04/23/25 trimethoprim 100 mg tablet 100 mg PO BEDTIME 04/23/25 04/23/25 Allergies Allergy/AdvReac Type Severity Reaction Status Date / Time cephalexin Allergy Mild Rash Verified 04/22/25 23:35 Review of Systems 2 Review of Systems: No chest pain or shortness breath no dizziness no nausea no vomiting Yes all other systems are reviewed and are negative [facility] Past Medical History Attestation statement: The following information was validated with the patient. Surgical History History of colonoscopy Social History Social History Patient Tobacco Use Status: Never used Tobacco Smoked in Last 30 Days: No Use of substances other than those prescribed or required for medical reasons: No Advance Directives: No Patient : No Current occupational status: employed Current occupation: windows application administrator/ right hand dominant Physical Exam 2 Exam: Exam: Appearance: Alert. Oriented X3. No acute distress. Eyes: Pupils equal, round and reactive to light. ENT: Pharynx normal. Neck: Normal inspection. Neck supple. No lymph nodes noted. No crepitus CVS: Normal heart rate and rhythm. Pulses normal. Normal S1 and S2 Respiratory: No respiratory distress. Breath sounds normal. No Wheezing. No rales Abdomen: Soft and nontender. No rigidity. No distention. good BS x4 Skin: Skin warm and dry. Normal skin color. Normal skin turgor. Extremities: No lower extremity edema. Neurovascular intact to all extremities. No Lacerations. No Rash Neuro: Oriented X 3. No motor deficit. No sensory deficit. Moving all extermities. No slurred speech. Cranial nerve intact Vital Signs: Vital Signs: Last Vital Signs Temp 98.3 F 04/23/25 10:31 Pulse 118 H 04/23/25 10:31 Resp 18 04/23/25 10:31 BP 134/80 04/23/25 10:31 Pulse Ox 99 04/23/25 10:31 O2 Del Method Room Air 04/23/25 09:35 BMI result Body Mass Index 23.4 Course Reevaluation(s) Reevaluation #1: Time: 10:34 Date: 04/23/25 Provider: Win Bajwa MD Physician observation ended at 10:00. Patient has been cleared for discharge by the CARE team. The patient is a 24-year-old female who was brought to the hospital yesterday by ambulance after getting into an argument with her father. Apparently she had made a possibly suicidal comment to her father. The patient apparently immediately recanted any suicidality when paramedics arrived and has consistently denied any suicidality. The patient was evaluated by the care team and was felt to be safe for discharge. The patient has been encouraged to possibly seek care voluntarily and possibly be hospitalized voluntarily but the patient was not interested. I went to see the patient. The patient confirms that she does not consider herself at any risk to herself if she leaves here. She has a primary care doctor and she is advised to follow up with her primary care doctor.. Time: 10:36 Medications Administered Discontinued Medications Generic Name Dose Route Start Last Admin Trade Name Girmaq PRN Reason Stop Dose Admin Acetaminophen 650 mg 04/23/25 04:14 04/23/25 04:17 Acetaminophen 325 Mg Tablet PO 04/23/25 04:15 650 mg ONCE ONE Administration Amitriptyline HCl 50 mg 04/23/25 06:00 04/23/25 06:22 Amitriptyline Hcl 50 Mg Tablet PO Not Given BEDTIME ANA Non-Formulary Medication 100 mg 04/23/25 06:00 04/23/25 06:22 Trimethoprim PO Not Given BEDTIME ANA Medical Decision Making Medical Decision Making [facility] Narrative: Well-appearing no acute distress patient not suicidal not homicidal at this time to me. There was a question suicidal statement that her father claimed. Nursing will make attempts to contact father. Currently in no distress. Will get patient evaluated in a.m. Nursing was able to get a hold the patient's stat. Patient doing a moment of anger threatened to shoot herself with a shotgun. She will require care team evaluation in a.m.. Differential Diagnosis Differential Diagnoses: The differential diagnosis associated with the presentation includes Suicidal ideation, stress anxiety Admission/Observation Consideration of admission/observation: Escalation of care including admission/observation considered Consult Healthcare Provider Management of the patient was discussed with: Advertising Sales Assistant (Care team) Lab Data MDM Lab Attestation statement: I reviewed the patient's lab results. 04/23/25 00:03 04/23/25 00:03 Labs: Lab Results 04/23/25 04/23/25 Range/Units 00:03 09:05 WBC 13.2 H (4.8-10.8) X10*3/uL RBC 4.84 (4.20-5.50) X10*6/uL Hgb 15.5 (12.0-16.0) g/dl Hct 42.3 (37.0-47.0) % MCV 87.4 (80.0-98.0) fL MCH 32.0 (27.0-33.0) pg MCHC 36.6 H (31.0-35.0) g/dl RDW 11.9 (11.0-16.0) % Plt Count 291 (160-400) X10*3/uL MPV 9.5 (9.4-12.3) fL Immature Gran % (Auto) 0.4 (0.0-0.4) % Neut % (Auto) 75.4 H (45-73) % Lymph % (Auto) 16.6 L (20-40) % [place] % (Auto) 5.6 (2-11) % Eos % (Auto) 1.4 (0-4) % Baso % (Auto) 0.6 (0-2) % Lymph # (Auto) 2.2 (1.2-4.9) X10*3/uL [place] # (Auto) 0.7 (0.1-1.2) X10*3/uL Eos # (Auto) 0.2 (0.0-0.4) X10*3/uL Baso # (Auto) 0.1 (0.0-0.2) X10*3/uL Abs Immat Gran (auto) 0.05 H (0.00-0.03) X10*3/uL Absolute Neuts (auto) 9.9 H (2.0-8.3) x10*3/uL Absolute Nucleated RBC 0.000 (0.0-0.012) X10*3/uL Nucleated RBC % (auto) 0.0 (0.0-0.2) /100WBC Sodium 142 (135-145) mmol/L Potassium 4.1 (3.3-5.1) mmol/L Chloride 108 (96-108) mmol/L Carbon Dioxide 21 L (22-29) mmol/L Anion Gap 17 (12-20) BUN 8 L (9-16) mg/dL Creatinine 0.75 (0.5-1.4) mg/dL Estim Creat Clear Calc 109.1 Estimated GFR > 60 Random Glucose 121 H (60-115) mg/dL Calcium 9.4 (8.4-10.2) mg/dL Total Bilirubin 0.3 (0.0-1.0) mg/dL AST 31 (5-31) U/L ALT 20 (0-31) U/L Alkaline Phosphatase 101 (39-117) U/L Total Protein 8.2 H (6.5-8.0) g/dL Albumin 4.9 (3.5-5.0) g/dL Urine Color Yellow Urine Appearance Clear Urine pH 6.5 (5.0-9.0) Ur Specific [place] 1.025 (1.005-1.025) Urine Protein Trace (Neg-Trace) mg/dL Urine Glucose (UA) Negative (Negative) mg/dL Urine Ketones Negative (Negative) mg/dL Urine Blood Negative (Negative) Urine Nitrite Positive H (Negative) Ur Leukocyte Esterase Small (1+) H (Negative) Urine RBC 0-2 (0-2) /HPF Urine WBC 6-10 H (0-5) /HPF Ur Squamous Epith Cells 3-5 (0-2) /HPF Urine Bacteria 4+ (None Seen) Hyaline Casts 0-2 (0-2) /LPF Urine Test NEGATIVE (NEGATIVE) Urine Opiates Screen Not Detected (Not Detect) Ur Buprenorphine Scrn Not Detected (Not Detect) ng/mL Ur Oxycodone Screen Not Detected (Not Detect) ng/mL Urine Methadone Screen Not Detected (Not Detect) ng/mL Urine Fentanyl Screen Not Detected (Not Detect) Ur Barbiturates Screen Not Detected (Not Detect) Ur Phencyclidine Scrn Not Detected (Not Detect) Ur Amphetamines Screen Not Detected (Not Detect) U Benzodiazepines Scrn Not Detected (Not Detect) Urine Cocaine Screen Not Detected (Not Detect) U Marijuana (THC) Screen Not Detected (Not Detect) Ethyl Alcohol < 10 mg/dL Independent Historian Clinical information obtained from an independent historian. History obtained from or confirmed by: EMS Discharge Plan Discharge Clinical Impression: Adjustment disorder Patient Disposition: Home, Self-Care Additional Instructions: You were seen in our Emergency Department today for treatment of a behavioral health issue. It is important after your visit that you follow up with either your behavioral health provider or a primary care doctor within 7 days.? If you have trouble finding a therapist you can reach out to [address] [phone] The National Suicide and Crisis Lifeline can be reached 7 days a week 24 hours a day.? Call 988 to speak with someone.? Return for any worsening symptoms or concerns such as thoughts of self-harm or harm to others. Please call 911 if you feel very bad.? Prescriptions: No Action trimethoprim 100 mg tablet 100 mg PO BEDTIME amitriptyline 50 mg tablet 50 mg PO BEDTIME Referrals: Adriana Fernandez NP [Primary Care Provider, Internal Medicine] Interventions: [place]-Suicide Risk Severity Scale Last Done: 04/22/25 23:44 ED Discharge Assessment Last Done: 04/23/25 10:31 Discharge Date/Time: 04/23/25 10:41 Print Language: Italian
--- NOTE | 2025-04-23 00:05 | PC.NURSE ---
This RN called pts yo Solomon ([phone]). He reports that this evening he sent a text out to both of his children reminding them of an open house since they are selling their house. Per dad, Nella came into his room upset, expressing concern over her cat being in her room during the open house and not wanting people to be around her cat. Per dad, he expressed that they would cover that problem when they got there which seemed to upset pt more. Nella then went on a drive her boyfriend and when she returned to the house, she was hysterical . per dad, pt stated someone just give me a shotgun so I can shoot myself . Per dad, there are no firearms in the home and pt has no access in other settings however he still expresses concern over her safety. Per dad, pt has also been inpatient before at [facility] when she as 15 or 16 years old. Dad also questions her compliance with her medications. Dr. Mckenzie aware at this time
--- NOTE | 2025-04-23 00:05 | MHC.EDTECH ---
Addendum entered by Karyna Shields 04/23/25 04:29: security able to complete belongings search, belongings secured in LOCKER #3 Original Note: security unavailable during exchange teller in POD due to a situation elsewhere in the hospital, t/w stayed in bathroom with pt while they changed over completely. pt removed all jewelry/allowed to keep ear piercings as they do not dangle. pt calm and cooperative with exchange teller. awaiting security to search through belongings. belongings eyed by t/w ISABELLE Moon. RN AWARE OF CIRCUMSTANCES.
[2025-04-23 00:10] LABS: MANUAL DIFF FLAG NO
[2025-04-23 00:11] LABS: Hematocrit 42.3 % (37.0-47.0); Hemoglobin 15.5 g/dl (12.0-16.0); Imm Gran Abs Auto 0.05 X10*3/uL (0.00-0.03); Imm Gran Pct Auto 0.4 % (0.0-0.4); Lymphocytes Absolute Auto 2.2 X10*3/uL (1.2-4.9); Mean Corpuscular HGB Conc 36.6 g/dl (31.0-35.0); Mean Corpuscular Hemoglobin 32.0 pg (27.0-33.0); Mean Corpuscular Volume 87.4 fL (80.0-98.0); NRBC Abs Auto 0.000 X10*3/uL (0.0-0.012); NRBC Pct Auto 0.0 /100WBC (0.0-0.2); Platelet Count 291 X10*3/uL (160-400); Red Blood Count 4.84 X10*6/uL (4.20-5.50); White Blood Count 13.2 X10*3/uL (4.8-10.8)
[2025-04-23 00:31] LABS: Alanine Aminotransferase 20 U/L (0-31); Albumin Level 4.9 g/dL (3.5-5.0); Alkaline Phosphatase 101 U/L (39-117); Anion Gap 17 (12-20); Aspartate Amino Transferase 31 U/L (5-31); Blood Urea Nitrogen 8 mg/dL (9-16); Calcium 9.4 mg/dL (8.4-10.2); Carbon Dioxide 21 mmol/L (22-29); Chloride 108 mmol/L (96-108); Creatinine Clr Calc Pharmacy 109.1; Estimated Glomerular Filt Rate > 60; Potassium 4.1 mmol/L (3.3-5.1); Sodium 142 mmol/L (135-145); Total Protein 8.2 g/dL (6.5-8.0)
--- OUTSIDE RECORDS SUMMARY | 2025-04-23 01:37 | XMS_ITS | Clinical Summary ---
Author Organization [facility] Address [address] [place] [phone] Phone Care Team Providers Care Cs Associate Name Role Phone Unavailable Primary Care Provider Unavailabl e Allergies Active Allergy Reactions Criticality Noted Date Comments Giovanni Perox-Hc, Cleanser No.[id number] 2021 Cephalexin 03/24/2022 Medications sertraline HCl (SERTRALINE ORAL) Take by mouth. Active SMARTRX - HORMONAL CONTRACEPTIVES Activ e Social History Tobacco Use Types Packs/Day Years Used Date Smoking Tobacco: Never Assessed Education Answer Date Recorded Are you interested in more education? Not on randy e 12/05/2022 Are you concerned about learning? Not on file 12/05/2022 No 12/05/2022 No 12/05/2022 Digital Access Answer Date Recorded No 01/02/2023 No 01/02/2023 No 01/02/2023 Reliable internet access at home? Not on file 01/02/2023 Device with a working camera? Not on file Comments Unknown Sex and Gender Information Value Date Recorded Sex Assigned at Female 03/24/2022 7:36 AM EDT Legal Sex Female 8:45 PM EDT Gender Identity Female 03/24/2022 7:36 AM EDT Sexual Orientation Not on file Last Filed Vital Signs Vital Sign Reading Time Taken Comments Blood Pressure 114/77 03/24/2022 10:12 AM EDT Pulse 70 03/24/2022 10:12 AM EDT Temperature 36.9 C (98.4 F) 03/24/2022 7:31 AM EDT Respiratory Rate 17 03/24/2022 10:12 AM EDT Oxygen Saturation 98% 03/24/2022 10:12 AM EDT Inhaled Oxygen Concentration - - Weight 61.2 kg (135 lb) 03/24/2022 7:31 AM EDT Height 157.5 cm (5' 2 ) 03/24/2022 7:31 AM EDT Body Mass Index 24.69 03/24/2022 7:31 AM EDT Plan of Treatment Health Maintenance Due Date Last Done Comments DEPRESSION SCREENING 2013 SMOKING Hx and SMOKELESS TOBACCO SCREENING 2014 CHLAMYDIA SCREENING 2017 MENINGOCOCCAL VACCINES (B) (1 of 2 - Standard) 2017 HPV VACCINES (3 - 3-dose series) 11/09/2018 07/16/2018, 05/11/2018 HEPATITIS C SCREENING 2019 HIV ONE-TIME SCREENING (18-65 YEARS) 2019 PAP SMEAR 2022 Adult Td,Tdap Booster 06/01/2023 06/01/2013 INFLUENZA VACCINE (#1) 2025 , 05/18/2020, 06/10/2019, Additional history exists COVID-19 VACCINE ( season) 2025 05/31/2021, 11/18/2020, 10/20/2020 HIB VACCINES Completed 11/15/2002, 03/2002, 2001, Additional history exists PNEUMOCOCCAL VACCINES (0-49 years) Aged Out 02/14/2003, 2001, 2001 No longer eligible based on patient's age to complete this topic MENINGOCOCCAL VACCINES (ACWY) Completed 09/01/2018, 06/01/2013 HEPATITIS A VACCINES Aged Out No long er eligible based on patient's age to complete this topic Medical Devices Not on file Insurance [facility] OUT OF [facility] PPO Member Subscriber Plan / Payer (Ef fective 2020-Present) Name:Nella Bragg Relation to Subscriber:Child Name:KAILA BRAGG Date of :1980 (Home) Address: [address] [place] [address] Payer ID:[id number] (NAIC) Type:PPO Address: [phone] HMO [place] [facility] [address] [facility] PPO Member Subscriber Plan / Payer (Ef fective 2020-Present) Name:Nella Bragg Relation to Subscriber:Child Name:KAILA BRAGG Date of :1979 (Home) Address: [place] [address] Payer ID:[id number] (NAIC) Type:PPO Address: [phone] [place] [address] [employer] [place] [address] [place] [address] [place] [address] [employer] [facility] [place] [facility] [place] [address] [employer] STATE PPO Member Subscriber Plan / Payer (Ef fective 2020-Present) Name:Nella Bragg Relation to Subscriber:Child Name:DILLONBONNIE CORBINHARIS Lang Date of :1979 (Home) Address: [place] [address] Payer ID:[id number] (NAIC) Type:PPO Address: [facility] [id number] HMO [place] [employer] OF STATE PPO Member Subscriber Plan / Payer (Ef fective 2020-Present) Name:Nella Bragg Relation to Subscriber:Child Name:KAILA BRAGG Date of :1979 (Home) Address: [address] [place] Payer ID:[id number] (NAIC) Type:PPO Address[phone] [facility] [place] [facility] PPO Member Subscriber Plan / Payer (Ef fective 2020-Present) Name:Nella Bragg Relation to Subscriber:Child Name:KAILA BRAGG Date of :1979 (Home) Address: [address] [place] Payer ID:[id number] (NAIC) Type:PPO Address: [phone] [place] [place] [address] [facility] PPO HMO Additional Source Comments The information contained in this document represents components of the legal health record. It is not the complete legal health record.[facility]
--- OUTSIDE RECORDS SUMMARY | 2025-04-23 01:37 | XMS_ITS | Clinical Summary ---
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 4 Active trospium (SANCTURA) 20 mg tabletIndicatio ns:Interstitial cystitis Take 1 tablet (20 mg total) by mouth 2 times a day. 180 tablet 3 5 12/27/19 26 Active trimethoprim (TRIMPEX) 100 mg tabletIndicatio ns:Recurrent UTI Take 1 tablet (100 mg total) by mouth at bed time. 90 tablet 3 5 12/27/19 26 Active amitriptyline (ELAVIL) 50 mg tabletIndicatio ns:Interstitial cystitis TAKE 1 TABLET BY MOUTH EVERY DAY AT NIGHT 90 tablet 3 5 Active Active Problems Problem Noted Date Diagnosed Date Interstitial cystitis 01/12/2024 Recurrent urinary tract infection 09/01/2019 Overview (01/28/2024): No showed urology appt on 08/26/1911/27: e coli uti macrobid 12/15/19: e coli uti Seen by urology 01/09/20 - plan methenamine 1 gm bid with vitamin C daily - plan renal U/S and KUB - f/u 2 months (seen by PA at [facility]) Anxiety and depression 12/22/2016 Encounters Date Type Department Care Team Description 03/07/2025 Refill [facility] [address] [place], [place] [id number] Airport Operations Supervisor: Rianna Ahn MD Interstitial cystitis from Last 3 Months Social History Tobacco Use Types Packs/Day Years Used Date Smoking Tobacco: Never Smokeless Tobacco: Never Tobacco Cessation:Counseling Given: Not Answered Alcohol Use Standard Drinks/Week Comments Yes 0 (1 standard drink = 0.6 oz pur e alcohol) occasionally Comments Unknown Sex and Gender Information Value Date Recorded Sex Assigned at Female 12/21/2023 3:07 PM EDT Legal Sex Female 3:05 PM EDT Gender Identity Not on file Sexual Orientation Not on file Last Filed Vital Signs Vital Sign Reading Time Taken Comments Blood Pressure 128/86 12/26/2024 3:54 PM EDT Pulse 116 12/26/2024 3:54 PM EDT Temperature - - Respiratory Rate - - Oxygen Saturation - - Inhaled Oxygen Concentration - - Weight - - Height - - Body Mass Index - - Plan of Treatment Health Maintenance Due Date Last Done Comments HIV Screening 2001 Hepatitis C Screening 2001 Pap Smear 2001 Chlamydia Screening 2017 HPV Vaccines (3 - 3-dose series) 11/09/2018 07/16/20 18, 05/11/2018 Alcohol/Substance Use Screening 08/10/2024 Depression Screening and Follow-Up 08/10/2024 Social Drivers of Health Gloria ual Screening 08/10/2024 COVID-19 Vaccine ( - 2024-2 6 season) 2025 05/31/2021, 11/18/2020, 10/20/2020 Influenza Vaccine (#1) 2025 , 05/30/2022, 06/07/2021, Additional history exists DTaP,Tdap,and Td Vaccines (8 - Td or Tdap) 01/11/2034 01/12/2024, 06/01/2013, 10/07/2006, Additional history exists RSV Vaccine (60+ years old a nd patients) (1 - 1-dose 75+ series) 2076 Hepatitis B Vaccines Completed 05/25/2002, 2001, 2001 Pneumococcal Vaccine: Pediat paulo (0-5 Years) and At-Risk Patients (6-50 Years) Completed 02/14/2003, 2001, 2001 Varicella Vaccines Completed 10/07/2006, 09/28/2002 Meningococcal Vaccine Completed 09/01/2018, [address] [facility] Care Teams Full Roll Inspector Relationship Specialty Start Date End Date No, Referring PCP - General 01/28/24
--- NOTE | 2025-04-23 04:18 | PC.NURSE ---
pt attempted urine sample, was not able to give one at this time
--- NOTE | 2025-04-23 04:31 | MHC.EDTECH ---
pt attempted to use the bathroom again to provide UA sample, pt unable to void due to the loudness of the toilet and the water splashing at me, i just can't do it... RN AWARE.
--- NOTE | 2025-04-23 04:38 | PC.NURSE ---
Pt notably upset this am, tearful regarding being here at this time I never said any of those things, he just wants to ruin my life . Pt declining all attempts of medication for anxiety, pt reports she does not want to sleep. Pt offered activities, currently sitting at desk in room coloring
--- NOTE | 2025-04-23 08:00 | PC.NURSE ---
Assumed care, report received. Pt is currently sleeping safety maintained.
[2025-04-23 09:12] LABS: Appearance Urine Clear; Glucose Urine UA Negative (Negative); PH 6.5 (5.0-9.0); Specific Gravity - Urine 1.025 (1.005-1.025); UMIC TRIGGER UACC YES; UPreg QC Valid YES
[2025-04-23 09:15] LABS: UACC Culture Trigger YES
[2025-04-23 09:22] LABS: Cannabinoid Screen Urine Not Detected (Not Detect)
[2025-04-23 09:35] VITALS: BP 134/80; PULSE 118; RESP 18; TEMP 36.8; O2SAT 99
[2025-04-23 10:31] VITALS: BP 134/80; PULSE 118; RESP 18; TEMP 36.8; O2SAT 99
== END 2025-04-23 10:41 | disposition home or self-care (01) ==
PROVIDERS: Emergency Provider Emergency Medicine Emergency Medical Services; PCP Nurse Practitioner Family
DX: F43.20 Adjustment disorder, unspecified (principal); R45.851 Suicidal ideations; Z79.899 Other long term (current) drug therapy; Z51.81 Encounter for therapeutic drug level monitoring
CPT/HCPCS: 36415; 80053; 80307; 81001; 81025; 85025; 87086; 99284; 99285; S9485